=== PATIENT | female | born 1955 | race Caucasian/White ===

== ENCOUNTER 2020-06-05 19:29 | Emergency (ER) | payer OTHER, MEDICARE ==
[2020-06-05 19:40] VITALS: RESP 18
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
[2020-06-05] MEDS ORDERED: ACETAMINOPHEN TAB 500 MG TAB PO STA (19:51)
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
[2020-06-05] MEDS ORDERED: IBUPROFEN 800 MG TAB PO STA (20:55)
[2020-06-05] MEDS ORDERED: ACET/COD 300 MG/30 MG STARTER PACK 6 TAB BTL PO STA (21:13)
[2020-06-05 22:41] VITALS: BP 141/88; PULSE 101; TEMP 98.4
== END 2020-06-05 21:40 | disposition home or self-care (01) ==
LOC: EC 19:29
DX: S42.291A Other displaced fracture of upper end of right humerus, initial encounter for closed fracture (principal); S60.512A Abrasion of left hand, initial encounter; F17.200 Nicotine dependence, unspecified, uncomplicated; V28.1XXA Motorcycle passenger injured in noncollision transport accident in nontraffic accident, initial encounter; Y93.89 Activity, other specified; Y92.488 Other paved roadways as the place of occurrence of the external cause
CPT/HCPCS: 70450; 71045; 72125; 99284